=== PATIENT | male | born 1990 | race Caucasian/White ===

== ENCOUNTER 2016-07-15 23:15 | Emergency (ER) | payer OTHER ==
[2016-07-16 04:27] VITALS: BP 149/77
== END 2016-07-16 03:40 | disposition home or self-care (01) ==
LOC: ED 23:15
DX: S61.210A Laceration without foreign body of right index finger without damage to nail, initial encounter (principal); W45.8XXA Other foreign body or object entering through skin, initial encounter; Y93.89 Activity, other specified; Y99.8 Other external cause status; Y92.89 Other specified places as the place of occurrence of the external cause
CPT/HCPCS: A4570; J2001